=== PATIENT | female | born 1990 | race African-American/Black ===

== ENCOUNTER 2019-12-05 23:11 | Emergency (ER) | payer OTHER ==
[~2019-12-05] VITALS: Ht 157.5 cm; Wt 65.8 kg
[~2019-12-05 23:11] MED LIST: FLAGYL500 MG PO; IBUPROFEN 600600 M1 PO
[2019-12-05 23:16] VITALS: BP 121/66
[2019-12-06 00:13] LABS: ABSOLUTE NEUTROPHILS 4.7 thou/uL (1.4-8.2); BASOPHILS 0.9 % (0.0-2.0); HEMOGLOBIN 11.2 gm/dL (12.0-15.0); LYMPHOCYTES 36.1 % (24.0-44.0); MCH 27.5 pg (26.0-34.0); MCV 83.3 fL (80.0-100.0); MONOCYTES 8.2 % (1.0-8.0); PLATELET COUNT 373 thou/uL (150-400); POLYS 53.8 % (36.0-66.0); RBC 4.08 mil/uL (4.20-5.00); RDW 14.8 % (10.5-14.5); WBC 8.7 thou/uL (4.0-11.0)
[2019-12-06 00:16] LABS: ANION GAP 7 mmol/L (7-16); BUN 11 mg/dL (7-18); CALCIUM 8.9 mg/dL (8.5-10.1); CHLORIDE 104 mmol/L (98-107); CO2 27 mmol/L (21-32); CREATININE 1.1 mg/dL (0.6-1.0); GLUCOSE 91 mg/dL (74-106); POTASSIUM 3.7 mmol/L (3.5-5.1); SODIUM 138 mmol/L (136-145)
[2019-12-06 00:22] LABS: DIRECT BILIRUBIN < 0.1 mg/dL (<0.1-0.2); LIPASE 152 U/L (73-393); SGOT 20 U/L (15-37); SGPT 20 U/L (30-65); TOTAL BILIRUBIN 0.5 mg/dL (<0.1-1.0); TOTAL PROTEIN 7.8 g/dL (6.4-8.2)
[2019-12-06 01:52] LABS: URINE BILIRUBIN NEGATIVE (Negative); URINE BLOOD NEGATIVE (Negative); URINE CLARITY CLEAR; URINE COLOR YELLOW; URINE GLUCOSE-RANDOM* NEGATIVE (Negative); URINE KETONES NEGATIVE (Negative); URINE LEUKOCYTES NEGATIVE (Negative); URINE NITRITE NEGATIVE (Negative); URINE PROTEIN (DIPSTICK) NEGATIVE (Negative); URINE UROBILINOGEN 0.2 E.U./dl (0.2-1.0)
== END 2019-12-06 02:18 | disposition left against medical advice (07) ==
LOC: ER 23:11
PROVIDERS: Emergency Medicine
DX: R10.30 Lower abdominal pain, unspecified (principal)